=== PATIENT | female | born 2000 | race Caucasian/White ===

== ENCOUNTER 2023-03-08 01:05 | Emergency (ER) | payer BC, MEDICAID ==
[~2023-03-08] VITALS: Ht 167.6 cm; Wt 96.0 kg
[2023-03-08 01:37] VITALS: O2SAT 98
[2023-03-08 03:35] VITALS: BP 132/75; PULSE 82; RESP 16; TEMP 98.2
== END 2023-03-08 03:36 | disposition home or self-care (01) ==
LOC: ER 01:05
DX: S46.912A Strain of unspecified muscle, fascia and tendon at shoulder and upper arm level, left arm, initial encounter (principal); W22.8XXA Striking against or struck by other objects, initial encounter; Y93.89 Activity, other specified; Y92.89 Other specified places as the place of occurrence of the external cause; Y99.8 Other external cause status
CPT/HCPCS: 73030; 99283